=== PATIENT | female | born 1980 | race Hispanic/Latino ===

== ENCOUNTER 2017-07-20 10:50 | Emergency (ER) | payer MEDICAID, SELFPAY | END 2017-07-20 11:10 | disposition home or self-care (01) | LOC: SCSER 10:50 | DX: S51.812D Laceration without foreign body of left forearm, subsequent encounter (principal); E78.5 Hyperlipidemia, unspecified; G43.909 Migraine, unspecified, not intractable, without status migrainosus; F41.9 Anxiety disorder, unspecified; F17.210 Nicotine dependence, cigarettes, uncomplicated; X58.XXXD Exposure to other specified factors, subsequent encounter ==